=== PATIENT | male | born 1970 | race Caucasian/White ===

== ENCOUNTER 2024-01-04 14:17 | Outpatient (AMB) | payer OTHER, SELFPAY ==
--- NOTE | 2024-01-04 14:24 | A.OFFVIS_ITS ---
Intake Vital Signs 01/04/24 14:32 Weight 295 lb BP 135/81 Blood Pressure Location Rt brachial Position Sitting Pulse 80 Intake Visit Reasons: recall colonoscopy screening Intake Note: This patient presents for an assessment for recall colonoscopy screening. Patient c/o; reports no complaints at this time. Last colonoscopy: 03/07/2016 Orthotist/Prosthetist Required: No Accompanied by: Self / Same As Patient Allergies No Known Allergies [No Known Allergies*] Allergy (Unverified 01/04/24 14:28) HPI recall colonoscopy screening HPI Details 53-year-old male referred for screening colonoscopy. His father was diagnosed to have colon cancer at age of 38. The patient is supposed to have a colonoscopy every 5 years. His last colonoscopy on record was 8 years ago. He says he was unable to do a follow-up colonoscopy because of the pandemic. He denies any GI complaints. He says that he had hip repair done for both the left and right side. [facility] Medical History (Updated 01/04/24 @ 14:36 by Pablo Aguilera MD) Morbid obesity Family history of colon cancer Review of Systems Const Denies chills and Denies fever(s) Card Denies chest pain, Denies dyspnea and Denies dyspnea on exertion Resp Denies cough, Denies dyspnea and Denies dyspnea on exertion GI Denies hematochezia and Denies change in bowel habits Denies hematuria and Denies difficulty urinating Musc Denies back pain and Denies limited range of motion Neuro Denies focal weakness and Denies convulsions Psych Denies depression and Denies mood swings Physical Exam Const Other: Morbidly obese General: comfortable and no acute distress Orientation/consciousness: patient oriented x3 Neck Neck: Yes no lymphadenopathy Resp Auscultation: clear to auscultation bilaterally Cardio Rhythm: regular rhythm GI Palpation (GI): Soft to palpation, nontender and no guarding Neuro General: patient oriented x3 Assessment & Plan Assessment & Plan (1) Family history of colon cancer: Code(s): Z80.0 - Family history of malignant neoplasm of digestive organs Plan: He has a strong family history of colon cancer. He is supposed to have a colonoscopy every 5 years. He is overdue to have one. I reviewed with him the technique of this procedure. I explained the risks including but not limited to bleeding and perforation, as well as the benefits and alternatives. He understands and agrees to proceed I also explained to him the option of proceeding with genetic testing in view of this family history. I discussed with him briefly the implications of this test to himself and his family. He is unable to the side right now but he says he will let me know on his next visit. Coding Level of Care Code New Pt Level 3 (46726) Diagnoses Family history of colon cancer Z80.0
[2024-01-04 14:32] VITALS: BP 135/81; PULSE 80
== END 2024-01-04 14:35 | disposition home or self-care (01) ==
PROVIDERS: PCP Physician Assistant Medical; Visit Provider Surgery
DX: Z80.0 Family history of malignant neoplasm of digestive organs (principal)
CPT/HCPCS: 99203

== ENCOUNTER → 2024-01-04 14:17 | Outpatient (BNVA) | payer OTHER, SELFPAY | PROVIDERS: PCP Physician Assistant Medical; Visit Provider Surgery | DX: Z01.89 Encounter for other specified special examinations (principal); Z80.0 Family history of malignant neoplasm of digestive organs | CPT/HCPCS: 99202 ==

== ENCOUNTER 2024-03-15 05:59 | Day surgery (SDC) | payer OTHER, SELFPAY ==
--- NOTE | 2024-03-13 13:03 | P.CONAN_ITS ---
Documented by User: Jossie Lehman NP 03/13/24 13:04 HPI - Anesthesia Eval Consult details Narrative: 53yo M for Colonoscopy possible Polypectomy Anesthesia Pre-Procedure Meds Is the patient on any of the following meds?: GLP1/DPP4 (tirzepatide) PMFSH Active Problems Active Problems: All Active Problems Morbid obesity (Acute) Family history of colon cancer (Acute) Past Medical History Medical History (Updated 02/14/24 @ 10:33 by Trista Kebede RN) Diabetes Elevated cholesterol HTN (hypertension) Morbid obesity Family history of colon cancer Social History Social History Patient Tobacco Use Status: Never used Tobacco Second Hand Smoke Exposure: No Use of substances other than those prescribed or required for medical reasons: No Are you DNR?: No Advance Directives: No Advance Directives Information Provided: Yes Advance Directives on File: No Meds Allergies Allergy/AdvReac Type Severity Reaction Status Date / Time No Known Allergies Allergy Unverified 01/04/24 14:28 [No Known Allergies*] Home Medications ?Medication ?Instructions ?Recorded ?Confirmed ?Last Taken ?Type albuterol sulfate 90 mcg/actuation inhalation 01/04/24 Unknown History aerosol inhaler (Ventolin HFA) amlodipine 5 mg tablet mg PO 01/04/24 Unknown History aspirin 81 mg tablet,delayed 81 mg PO DAILY 01/04/24 Unknown History release atorvastatin 20 mg tablet 20 mg PO DAILY 01/04/24 Unknown History budesonide-formoterol HFA 80 inhalation 01/04/24 Unknown History mcg-4.5 mcg/actuation aerosol inhaler (Symbicort) cetirizine 10 mg tablet 10 mg PO DAILY 01/04/24 Unknown History cholecalciferol (vitamin D3) 125 125 mcg PO DAILY 01/04/24 Unknown History mcg (5,000 unit) capsule escitalopram oxalate 5 mg tablet 5 mg PO DAILY 01/04/24 Unknown History fenofibrate micronized 134 mg 134 mg PO DAILY 01/04/24 Unknown History capsule metformin 500 mg tablet 500 mg PO BID 01/04/24 Unknown History multivitamin with folic acid 400 tab PO 01/04/24 Unknown History mcg tablet (Therems Multivitamin) tirzepatide 15 mg/0.5 mL mg subcut 01/04/24 Unknown History subcutaneous pen injector (Tierra) tizanidine 4 mg tablet 4 mg PO TID 01/04/24 Unknown History tramadol 50 mg tablet 50 mg PO BID PRN 01/04/24 Unknown History Exam Height,Weight and Vital Signs: Weight 133.81 kg Assessment and Plan Assessment Anesthesia Assessment: Chart Reviewed Documented by User: Kim Garber MD 03/15/24 07:06 [facility] Past Medical History Medical History (Updated 02/14/24 @ 10:33 by Trista Kebede RN) Diabetes Elevated cholesterol HTN (hypertension) Morbid obesity Family history of colon cancer Family History Family history of problems with anesthesia: No Surgical History History of Problems with Anesthesia: No Social History Social History Patient Tobacco Use Status: Never used Tobacco Second Hand Smoke Exposure: No Use of substances other than those prescribed or required for medical reasons: No Are you DNR?: No Advance Directives: No Advance Directives Information Provided: Yes Advance Directives on File: No Meds Allergies Allergy/AdvReac Type Severity Reaction Status Date / Time No Known Allergies Allergy Unverified 01/04/24 14:28 [No Known Allergies*] Home Medications ?Medication ?Instructions ?Recorded ?Confirmed ?Last Taken ?Type albuterol sulfate 90 mcg/actuation inhalation 01/04/24 Unknown History aerosol inhaler (Ventolin HFA) amlodipine 5 mg tablet mg PO 01/04/24 Unknown History aspirin 81 mg tablet,delayed 81 mg PO DAILY 01/04/24 Unknown History release atorvastatin 20 mg tablet 20 mg PO DAILY 01/04/24 Unknown History budesonide-formoterol HFA 80 inhalation 01/04/24 Unknown History mcg-4.5 mcg/actuation aerosol inhaler (Symbicort) cetirizine 10 mg tablet 10 mg PO DAILY 01/04/24 Unknown History cholecalciferol (vitamin D3) 125 125 mcg PO DAILY 01/04/24 Unknown History mcg (5,000 unit) capsule escitalopram oxalate 5 mg tablet 5 mg PO DAILY 01/04/24 Unknown History fenofibrate micronized 134 mg 134 mg PO DAILY 01/04/24 Unknown History capsule metformin 500 mg tablet 500 mg PO BID 01/04/24 Unknown History multivitamin with folic acid 400 tab PO 01/04/24 Unknown History mcg tablet (Therems Multivitamin) tirzepatide 15 mg/0.5 mL mg subcut 01/04/24 Unknown History subcutaneous pen injector (Tierra) tizanidine 4 mg tablet 4 mg PO TID 01/04/24 Unknown History tramadol 50 mg tablet 50 mg PO BID PRN 01/04/24 Unknown History Exam Airway Mallampati Class: IV TM Dist: >3cm Neck ROM: Full Assessment and Plan Assessment Anesthesia Assessment: Anesthesia Plan Discussed Final Anesthetic Review Family History of Problems with Anesthesia: No History of Problems with Anesthesia: No NPO: Yes ASA Class: III Final Preanesthetic Review: No Changes in Pt Med Stat, Meds/Allgs Chart Reviewed, Consent Obtained/Reviewed and Anes Risks/Benef Reviewed Patient Risk: Intermediate Procedure Risk: Intermediate Anesthetic Plan Anesthetic Plan: TIVA Disposition: Standard PACU
[2024-03-15 06:13] VITALS: BMI 41.1
[2024-03-15 06:28] VITALS: BP 119/72; PULSE 66; RESP 16; TEMP 36.8; O2SAT 99
[2024-03-15] MEDS: Lactated Ringers 1,000 ML 100 ML IVCONT (06:31)
[2024-03-15 06:34] LABS: Glucose, Whole Blood 100 mg/dL (60-115)
--- NOTE | 2024-03-15 07:18 | MHC.SHP ---
Pre-Procedural Eval Section A - 24 Hr Update-Section A only Date of Service: 03/15/24 Section B - Complete if H&P > 30 days Chief Complaint: Family history of malignant neoplasm of digestive Details of Present Illness: Family history of colon cancer - father had colon cancer at age of 38 Relevant Family History (Specify if Yes): Yes Relevant Social History: None Present Medications: see Short Stay Collaborative assessment Medical History: Significant History (Morbidly obese) Allergies: Allergies Allergy/AdvReac Type Severity Reaction Status Date / Time No Known Allergies Allergy Unverified 01/04/24 14:28 [No Known Allergies*] Review of Systems Sugical H&P ROS: Negative: Constitution, Cardiovascular, Respiratory, Neurological, Psychiatric, Hem-Onc, Allergic/Immunologic, Gastrointestinal, Genitourinary, Musculoskeletal, Integumentary, Endocrine and Eyes/Ears/Nose/Throat Exam Surgical H&P Exam: Normal: HEENT, Normal: Heart, Normal: Lungs, Normal: Extremities, Normal: Abdomen, Normal: Skin and Normal: Neurological Plan Diagnosis/Plan: Unchanged I have reviewed the history and physical and performed a pertinent physical examination on my patient. No changes have occurred unless specified. Time Spent With Patient Time: Total time managing care of this patient today ____ minutes.
[2024-03-15 07:50] VITALS: BP 110/64; PULSE 80; RESP 12; TEMP 36.1; O2SAT 97
--- NOTE | 2024-03-15 07:50 | W.PM.OPN ---
Operative Note Operative Note Date of Service: 03/15/24 Narrative: Preop diagnosis: Family history of colon cancer Postop diagnosis: 1. 2 small polyps, about 2-3 mm each at level 90 cm, both removed with cold forceps 2. Occasional diverticuli, transverse colon left colon Procedure: Colonoscopy with polypectomy using cold forceps x2 Surgeon: Pablo Aguilera MD The patient is a 53-year-old male with a family history of colon cancer and therefore undergoes colonoscopy every 5 years. He understands the technique of the procedure as well as the risks, benefits, and alternatives. The patient was brought to the operating room and placed in left lateral decubitus position under monitored anesthesia care. A surgical time-out was done. A full digital rectal exam was done and this did not reveal any significant anal lesions. The tip of the Olympus colonoscope was gently introduced through the anal orifice advanced with insufflation all the way to the cecum. The cecum was intubated. The cecum was identified by visualization of the ileocecal valve as well as the appendiceal orifice. The cecal mucosa was unremarkable. The scope was gradually withdrawn with careful examination of the entire colonic mucosa being done with scope withdrawal. The patient had adequate bowel prep so it was unlikely that any lesion may have been missed. There was occasional diverticula in the transverse colon and the left colon. There was note of 2 small polyps adjacent to each other level 90 cm which seems to be in the transverse colon. Both of these were removed with cold forceps. The rectum was reached and there were no lesions seen. The anal canal was unremarkable. The scope was then withdrawn completely with desufflation The patient tolerated procedure well. There were no immediate complications. In view of his family history, we can continue with screening colonoscopy every 5 years.
[2024-03-15 08:05] VITALS: BP 119/73; PULSE 58; RESP 14; O2SAT 96
[2024-03-15 08:20] VITALS: BP 122/81; PULSE 76; RESP 18; TEMP 37; O2SAT 97
== END 2024-03-15 08:55 | disposition home or self-care (01) ==
PROVIDERS: PCP Internal Medicine; Visit Provider Surgery
PROC: 0DBE8ZZ Excision of Large Intestine, Via Natural or Artificial Opening Endoscopic (ICD-10-PCS; CPT 45380; principal; 2024-03-15 07:30)
DX: Z12.11 Encounter for screening for malignant neoplasm of colon (principal); D12.6 Benign neoplasm of colon, unspecified; K57.30 Diverticulosis of large intestine without perforation or abscess without bleeding; Z80.0 Family history of malignant neoplasm of digestive organs
CPT/HCPCS: 45380; 82947; 88305; J2704

== ENCOUNTER → 2024-03-15 05:59 | Outpatient (BNV) | payer OTHER, SELFPAY | PROVIDERS: PCP Internal Medicine; Visit Provider Surgery | DX: Z12.11 Encounter for screening for malignant neoplasm of colon (principal); K63.5 Polyp of colon; K57.90 Diverticulosis of intestine, part unspecified, without perforation or abscess without bleeding; Z80.0 Family history of malignant neoplasm of digestive organs | CPT/HCPCS: 45380 ==

== ENCOUNTER 2024-03-27 10:01 | Outpatient (AMB) | payer OTHER, SELFPAY ==
--- NOTE | 2024-03-27 11:26 | A.OFFVIS_ITS ---
Intake Visit Reasons: s/p colonoscopy Intake Note: This patient presents for a follow-up assessment status post colonoscopy. Patient c/o; report no complaints. [facility] [employer] Required: No Accompanied by: Self / Same As Patient Allergies No Known Allergies [No Known Allergies*] Allergy (Unverified 03/27/24 11:32) HPI HPI s/p colonoscopy: Details: He had gone colonoscopy last 03/15/2024 in view of his family history of colon cancer. He tolerated procedure well. He currently denies significant complaints. [facility] Medical History (Updated 03/27/24 @ 11:34 by Pablo Aguilera MD) Tubular adenoma Diabetes Elevated cholesterol HTN (hypertension) Morbid obesity Family history of colon cancer Surgical History History of colonoscopy Social History Patient Tobacco Use Status: Never used Tobacco Second Hand Smoke Exposure: No Review of Systems Const Denies chills and Denies fever(s) Card Denies chest pain, Denies dyspnea and Denies dyspnea on exertion Resp Denies cough, Denies dyspnea and Denies dyspnea on exertion GI Denies hematochezia and Denies change in bowel habits Denies hematuria and Denies difficulty urinating Musc Denies back pain and Denies limited range of motion Neuro Denies focal weakness and Denies convulsions Psych Denies depression and Denies mood swings Physical Exam Const General: comfortable and no acute distress Resp Effort & Inspection: normal respiratory effort GI Palpation (GI): Soft to palpation, not firm and nontender Assessment & Plan Assessment & Plan (1) Tubular adenoma: Code(s): D36.9 - Benign neoplasm, unspecified site Category: Medical Plan: Status post colonoscopy for family history of colon cancer. He is doing welll. I removed 2 small polyps. These were tubular adenomas on recommended continuing with a colonoscopy every 5 years in his family history. (2) Family history of colon cancer: Code(s): Z80.0 - Family history of malignant neoplasm of digestive organs Category: Medical Plan: He may continue with screening colonoscopy every 5 years for his family history. (3) Morbid obesity: Code(s): E66.01 - Morbid (severe) obesity due to excess calories Category: Medical Plan: He is morbidly obese. I explained to him the benefits of weight loss to his cancer risk as well as to his overall health. He says is seeing a weight management program in [place]. Coding Level of Care Code Est Pt Level 2 (00058) Diagnoses Tubular adenoma D36.9 Family history of colon cancer Z80.0 Morbid obesity E66.01
== END 2024-03-27 11:39 | disposition home or self-care (01) ==
PROVIDERS: PCP Internal Medicine; Visit Provider Surgery
DX: D36.9 Benign neoplasm, unspecified site (principal); Z80.0 Family history of malignant neoplasm of digestive organs; E66.01 Morbid (severe) obesity due to excess calories
CPT/HCPCS: 99212

== ENCOUNTER → 2024-03-27 10:01 | Outpatient (BNVA) | payer OTHER, SELFPAY | PROVIDERS: PCP Internal Medicine; Visit Provider Surgery | DX: D36.9 Benign neoplasm, unspecified site (principal); E66.01 Morbid (severe) obesity due to excess calories; Z80.0 Family history of malignant neoplasm of digestive organs | CPT/HCPCS: 99212 ==